=== PATIENT | male | born 1940 | race Caucasian/White ===

== ENCOUNTER 2018-07-24 06:08 | Day surgery (SDC) | payer OTHER, BC ==
[2018-07-11 13:26] VITALS: BMI 21.9
--- NOTE | 2018-07-15 14:31 | HP ---
DATE OF ADMISSION: 07/24/2018 DATE OF DICTATION: 07/09/2018 HISTORY: This is a 77-year-old man admitted through the [facility] for laparoscopic inguinal hernia surgery. Patient with an obvious reducible right inguinal hernia. Patient with findings suspicious for early left hernia formation. Patient clearly understands that if the procedure cannot be accomplished laparoscopically, he will undergo an open right inguinal hernia repair with mesh. No underlying GI, , or respiratory complaints to suggest predisposition to hernia formation. However, on close questioning, the patient does state that he does have some urinary frequency and at times has some difficulty starting a urinary stream. PAST MEDICAL HISTORY: Significant for hypercholesterolemia and cataracts. No known history of heart disease, diabetes, respiratory, or hepatic insufficiency. PAST SURGICAL HISTORY: Significant for rotator cuff repair in 2007. ALLERGIES: None known. REGULAR MEDICATIONS: Atorvastatin. SOCIAL HISTORY: Negative tobacco. Social alcohol/not quantified. FAMILY HISTORY: Nil. REVIEW OF SYSTEMS: Nil. PHYSICAL EXAMINATION: Abdomen: Patient examined in the erect position. On inspection, there is an obvious, moderate-size right inguinal hernia. The hernia is reducible. On the left side, there is some suggestion of fullness. On palpation on the left side, although there is no obvious hernia externally, with digital palpation through the external ring, there is significant attenuation and there is significant suspicion of an early left inguinal hernia as well. Pelvic: Testes are bilaterally mildly atrophic with no masses. IMPRESSION: Symptomatic reducible right inguinal hernia. Suspect left inguinal hernia. PLAN: Bilateral laparoscopic inguinal hernia repair with mesh. If the case cannot be accomplished laparoscopically, patient understands he will undergo an open right repair with mesh with no attention to the left. Indications, alternatives, possible complications reviewed. Issues that relate to the mesh which include, but are not limited to, infection, rejection, migration , and neuritides have been explained. Consent obtained. Patient to be seen preoperatively by Dr. Miki Velasquez, his PMD. Please refer to those notes for those medical details. TRISTAN LEONARD M.D. [id number] cc: Miki Velasquez MD [facility]
[2018-07-24] MEDS ORDERED: TAMSULOSIN HCL 0.4 MG CAP ONE (07:00)
[2018-07-24] MEDS ORDERED: BUPIVACAINE HCL/PF 2.5 MG/ML - 30 ML VIAL IJ ONE (07:25)
[2018-07-24] MEDS ORDERED: BUPIVACAINE HCL/PF (5 MG/ML) 30 ML VIAL IJ ONE (07:25)
[2018-07-24] MEDS ORDERED: MIDAZOLAM HCL 2 MG/2 ML SINGLE DOSE VIAL ONE (07:25)
[2018-07-24] MEDS ORDERED: DEXAMETHASONE SOD PHOSPHATE/PF 10 MG/ML SDV ONE (07:26)
[2018-07-24] MEDS ORDERED: SUCCINYLCHOLINE CHLORIDE 200 MG/10 ML VIAL ONE (08:06)
[2018-07-24] MEDS ORDERED: ROCURONIUM BROMIDE 50 MG/5 ML VIAL ONE (08:06)
[2018-07-24] MEDS ORDERED: PROPOFOL 20 ML ONE ×2 (08:06)
[2018-07-24] MEDS ORDERED: ceFAZolin SODIUM 1 GM VIAL ONE (08:15)
[2018-07-24] MEDS ORDERED: DEXAMETHASONE SOD PHOSPHATE 4 MG/1 ML VIAL ONE ×2 (08:15→08:22)
[2018-07-24] MEDS ORDERED: ONDANSETRON 4 MG/2 ML VIAL ONE ×2 (08:15→08:22)
[2018-07-24] MEDS ORDERED: ePHEDrine SULFATE 50 MG/1 ML AMPULE ONE (08:19)
[2018-07-24] MEDS ORDERED: GLYCOPYRROLATE 0.2 MG/1 ML VIAL ONE (08:50)
[2018-07-24] MEDS ORDERED: NEOSTIGMINE METHYLSULFATE 0.5 MG/ML - 10 ML MDV ONE (08:50)
[2018-07-24] MEDS ORDERED: KETOROLAC TROMETHAMINE 30 MG/1 ML VIAL IVPUSH ONE ×2 (10:00→11:22)
[2018-07-24] MEDS ORDERED: KETOROLAC TROMETHAMINE 30 MG/1 ML VIAL ONE (10:02)
--- NOTE | 2018-07-24 10:21 | OP ---
DATE OF OPERATION: 07/24/2018 PREOPERATIVE DIAGNOSIS: Bilateral inguinal hernias. POSTOPERATIVE DIAGNOSIS: Bilateral indirect inguinal hernias. PROCEDURE: Bilateral laparoscopic inguinal hernia repair with mesh. OPERATING SURGEON: Tristan Saravia MD MAINTENANCE SERVICES DISPATCHER: Juan Pablo Araiza MD ANESTHESIA: General, Demi Meza MD HISTORY: This is a 77-year-old male who presents for bilateral laparoscopic inguinal hernia repair with mesh. Indications, alternatives, possible complications reviewed. Consent obtained. DESCRIPTION OF PROCEDURE: With the patient in the supine position and after general anesthesia, the abdomen was prepped and draped in sterile fashion using chlorhexidine. Small incision was made just beneath the umbilicus and off to the right of the midline. Subcutaneous tissues were . The anterior rectus sheath on the right was identified and incised. The rectus muscle flaps were retracted laterally in both directions, exposing the preperitoneal space. Dissecting balloon was advanced in the preperitoneal space towards the pubis. The balloon was insufflated, creating a dissection. The balloon was removed, leaving the structural collar in place. The preperitoneal space was insufflated to an adequate pressure and volume using CO2 gas. Camera lens was passed through the umbilical port site and the preperitoneal space visualized. Under direct vision, an 11-mm port was placed in the midline midway between the umbilicus and the pubis. The operating instruments were passed through this port. Exploration of the preperitoneal space allowed recognition of the anatomy. There were bilateral indirect inguinal components noted, with the right larger than the left. There were no direct femoral components noted. First directing our attention to the patient's left side, the indirect component on the left side was reduced with skeletonization of the cord. The left side was repaired using a piece of 4 x 6-inch Versatex mesh. The mesh was keyholed and placed in the preperitoneal space and fashioned on the left side with counter palpation and AbsorbaTacker. The mesh was fixed superiorly to the ileopubic tract. The mesh was fixed anteriorly to the anterior abdominal wall. The mesh was fixed inferior to Jaswinder ligament and the pubic tubercle. The keyholed leaf of the mesh was wrapped around the cord and tacked in place, reconstructing the internal ring. Now directing our attention to the right side, the larger indirect component was reduced with skeletonization of the cord. The right side was repaired with the same mesh and method as described above for the left side. After completion of the repair, the mesh was noted to overlap in the midline. The low midline port was removed, no bleeding identified. Ultimately, the camera lens and structural collar were removed from the umbilical port site and the gas was allowed to escape from the preperitoneal space. The fascia at each of the port sites was closed using interrupted 0 Vicryl sutures. Both skin wounds were closed using subcuticular 4-0 Biosyn sutures. Needle, sponge, instrument count correct. Estimated blood loss minimal. SPECIMENS: None. DRAINS: None. IMPLANTS: Mesh x2. Patient tolerated the procedure, and the procedure was terminated. TRISTAN SARAVIA M.D. [id number] MTDD
[2018-07-24] MEDS ORDERED: oxyCODONE HCL 5 MG TABLET ONE (11:09)
[2018-07-24] MEDS ORDERED: ONDANSETRON 4 MG/2 ML VIAL IVPUSH PRN (11:21)
[2018-07-24] MEDS ORDERED: oxyCODONE HCL 5 MG TABLET PO PRN (11:21)
[2018-07-24 11:30] VITALS: TEMP 97.6
[2018-07-24] MEDS ORDERED: LACTATED RINGERS SOLUTION 1,000 ML IV SCH (11:30)
[2018-07-24 16:29] VITALS: BP 122/60; PULSE 70
== END 2018-07-24 16:15 | disposition home or self-care (01) ==
LOC: FASU 06:08
PROVIDERS: ATTEND Surgery
PROC: 0YUA4JZ Supplement Bilateral Inguinal Region with Synthetic Substitute, Percutaneous Endoscopic Approach (ICD-10-PCS; principal; 2018-07-24 09:00)
DX: K40.20 Bilateral inguinal hernia, without obstruction or gangrene, not specified as recurrent (principal)
CPT/HCPCS: 94760

== ENCOUNTER 2023-03-06 07:11 | Day surgery (SDC) | payer OTHER, BC ==
[2023-03-01 13:52] VITALS: BMI 22.1
[2023-03-06] MEDS ORDERED: TROPICAMIDE 1% OPHTH SOLN 15 ML BOTTLE ONE (07:18)
[2023-03-06] MEDS ORDERED: PHENYLEPHRINE 2.5% OPTHALMIC DROP 2ML BOTTLE ONE (07:18)
[2023-03-06] MEDS ORDERED: BETAXOLOL HCL 0.25% OPHTHALMIC 10 ML DROPSBTL ONE (07:20)
[2023-03-06] MEDS ORDERED: BACITRACIN/POLYMYXIN OPH OINT 3.5 GM TUBE ONE (07:20)
[2023-03-06] MEDS ORDERED: EPI-SHUGARCAINE (EPINEPHRINE 0.025% & LIDOCAINE-PF 0.75%) 4ML ONE (07:21)
[2023-03-06] MEDS ORDERED: TETRACAINE 0.5% OPHTH SOLN 2 ML BOTTLE ONE (07:21)
[2023-03-06] MEDS ORDERED: POVIDONE-IODINE 5% OPHTHALMIC PREP 30 ML SOLUTION ONE (07:21)
[2023-03-06] MEDS ORDERED: NEO/POLYMYX B SULF/DEXAMETH OPHTHALMIC 5ML BOTTLE ONE (07:21)
[2023-03-06] MEDS: PHENYLEPHRINE 2.5% OPHTH SOLN 15 ML BOTTLE OD SCH ×3 (07:40→07:50)
[2023-03-06] MEDS: KETOROLAC TROMETHAMINE 0.5% EYE DROP 1 DROP DROPS OD SCH ×3 (07:40→07:50)
[2023-03-06] MEDS: OFLOXACIN 0.3% OPHTHALMIC SOLUTION 5 ML BOTTLE OD SCH ×3 (07:40→07:50)
[2023-03-06] MEDS: CYCLOPENTOLATE HCL 1% OPHTH SOLN 2 ML BOTTLE OD SCH ×3 (07:40→07:50)
[2023-03-06] MEDS: TROPICAMIDE 1% OPHTH SOLN 15 ML BOTTLE OD SCH ×3 (07:40→07:50)
[2023-03-06] MEDS ORDERED: ACETAMINOPHEN 325 MG TABLET (FP) PO PRN ×2 (07:41→10:40)
[2023-03-06 07:44] VITALS: RESP 16
[2023-03-06] MEDS ORDERED: MIDAZOLAM HCL 2 MG/2 ML SINGLE DOSE VIAL ONE (09:13)
[2023-03-06 10:54] VITALS: TEMP 97.6
[2023-03-06 11:26] VITALS: BP 113/75; PULSE 70
== END 2023-03-06 11:20 | disposition home or self-care (01) ==
LOC: FASU 07:11
PROVIDERS: ATTEND Ophthalmology
PROC: 08RJ3JZ Replacement of Right Lens with Synthetic Substitute, Percutaneous Approach (ICD-10-PCS; principal; 2023-03-06 09:54)
DX: H25.89 Other age-related cataract (principal); H57.03 Miosis
CPT/HCPCS: 66982; V2632

== ENCOUNTER 2023-03-20 06:36 | Day surgery (SDC) | payer OTHER, BC ==
[2023-03-01 14:05] VITALS: BMI 22.1
[2023-03-20] MEDS ORDERED: OFLOXACIN 0.3% OPHTHALMIC SOLUTION 5 ML BOTTLE ONE (06:49)
[2023-03-20] MEDS ORDERED: PHENYLEPHRINE 2.5% OPTHALMIC DROP 2ML BOTTLE ONE (06:49)
[2023-03-20] MEDS ORDERED: TROPICAMIDE 1% OPHTH SOLN 15 ML BOTTLE ONE (06:49)
[2023-03-20] MEDS ORDERED: CYCLOPENTOLATE HCL 1% OPHTH SOLN 2 ML BOTTLE ONE (06:50)
[2023-03-20] MEDS ORDERED: KETOROLAC TROMETHAMINE 0.5% EYE DROP 1 DROP DROPS ONE (06:50)
[2023-03-20] MEDS: PHENYLEPHRINE 2.5% OPHTH SOLN 15 ML BOTTLE OS SCH ×3 (06:55→07:05)
[2023-03-20] MEDS: CYCLOPENTOLATE HCL 1% OPHTH SOLN 2 ML BOTTLE OS SCH ×3 (06:55→07:05)
[2023-03-20] MEDS: TROPICAMIDE 1% OPHTH SOLN 15 ML BOTTLE OS SCH ×3 (06:55→07:05)
[2023-03-20] MEDS: OFLOXACIN 0.3% OPHTHALMIC SOLUTION 5 ML BOTTLE OS SCH ×3 (06:55→07:05)
[2023-03-20] MEDS: KETOROLAC TROMETHAMINE 0.5% EYE DROP 1 DROP DROPS OS SCH ×3 (06:55→07:05)
[2023-03-20 07:03] VITALS: RESP 19
[2023-03-20] MEDS ORDERED: BETAXOLOL HCL 0.25% OPHTHALMIC 10 ML DROPSBTL ONE (07:09)
[2023-03-20] MEDS ORDERED: PHENYLEPHRINE/KETOROLAC 4 ML VIAL IO ONE (07:09)
[2023-03-20] MEDS ORDERED: BACITRACIN/POLYMYXIN OPH OINT 3.5 GM TUBE ONE (07:09)
[2023-03-20] MEDS ORDERED: EPINEPHrine/PF 1 MG/1 ML (1:1,000) AMPULE ONE (07:09)
[2023-03-20] MEDS ORDERED: NEO/POLYMYX B SULF/DEXAMETH OPHTHALMIC 5ML BOTTLE ONE (07:10)
[2023-03-20] MEDS ORDERED: TETRACAINE 0.5% OPHTH SOLN 2 ML BOTTLE ONE (07:10)
[2023-03-20] MEDS ORDERED: ACETYLCHOLINE 1:100 INTRA-OCUL 20 MG/2 ML KIT ONE (07:10)
[2023-03-20] MEDS ORDERED: POVIDONE-IODINE 5% OPHTHALMIC PREP 30 ML SOLUTION ONE (07:10)
[2023-03-20] MEDS ORDERED: TRYPAN BLUE 0.5 ML DISP.SYRIN ONE (07:10)
[2023-03-20] MEDS ORDERED: EPI-SHUGARCAINE (EPINEPHRINE 0.025% & LIDOCAINE-PF 0.75%) 4ML ONE (07:10)
[2023-03-20] MEDS ORDERED: BSS (NA/CA/MG/K) BALANCED SALT SOLUTION OPHTH SOLN 15 ML BOTTLE ONE (07:31)
[2023-03-20] MEDS ORDERED: MIDAZOLAM HCL 2 MG/2 ML SINGLE DOSE VIAL ONE (08:15)
[2023-03-20] MEDS ORDERED: ACETAMINOPHEN 325 MG TABLET (FP) PO PRN (09:21)
[2023-03-20 09:39] VITALS: TEMP 98.7
[2023-03-20 09:49] VITALS: BP 127/72; PULSE 65
== END 2023-03-20 09:55 | disposition home or self-care (01) ==
LOC: FASU 06:36
PROVIDERS: ATTEND Ophthalmology
PROC: 08RK3JZ Replacement of Left Lens with Synthetic Substitute, Percutaneous Approach (ICD-10-PCS; principal; 2023-03-20 08:45)
DX: H25.89 Other age-related cataract (principal)
CPT/HCPCS: 66984; V2632; J1097

== ENCOUNTER 2024-01-14 07:44 | Day surgery (SDC) | payer OTHER, BC ==
[2024-01-10 11:52] VITALS: BMI 23.1
[2024-01-14] MEDS ORDERED: LIDOCAINE HCL/PF 2% SDV 5ML VIAL ONE (07:50)
[2024-01-14] MEDS ORDERED: PROPOFOL 160 ML ONE (07:51)
[2024-01-14 08:02] VITALS: RESP 18
[2024-01-14 09:44] VITALS: BP 109/69; PULSE 66; TEMP 97.6
== END 2024-01-14 09:35 | disposition home or self-care (01) ==
LOC: FASU-ENDO 07:44
PROVIDERS: ATTEND Internal Medicine Gastroenterology
PROC: 0D5P8ZZ Destruction of Rectum, Via Natural or Artificial Opening Endoscopic (ICD-10-PCS; 2024-01-14)
PROC: 0W3P8ZZ Control Bleeding in Gastrointestinal Tract, Via Natural or Artificial Opening Endoscopic (ICD-10-PCS; principal; 2024-01-14 08:20)
DX: K55.21 Angiodysplasia of colon with hemorrhage (principal); K62.5 Hemorrhage of anus and rectum